=== PATIENT | male | born 1970 | race Caucasian/White ===

== ENCOUNTER 2017-07-18 14:41 | Emergency (ER) | payer BC ==
--- NOTE | 2017-07-19 09:15 | ER ---
ADMIT: 07/18/2017 RM/LOC: ER [facility] MR#: [id number] [facility] [id number] [address] [place] [address] Emergency Room Report SEX: M AGE: 46 : 1970 DATE: 07/18/2017 TIME: 1505 hours. CHIEF COMPLAINT: Racing heart. HISTORY OF PRESENT ILLNESS: This is a 46-year-old Citizen Of [place] male who had drank a several energy drinks today and he felt his heart racing. This time his EKG was negative. He does not really have any significant history otherwise. He is otherwise fairly healthy male. Does not smoke. Denies any other medical history. He was reassured after EKG and instructed to decrease his caffeine intake. CONDITION ON DISCHARGE: Good. Truong Acosta MD/ aries JOB #: [id number] CC: Truong Acosta MD, Attending Physician
== END 2017-07-18 15:24 | disposition home or self-care (01) ==
LOC: ER 14:41
DX: R00.2 Palpitations (principal); T43.615A Adverse effect of caffeine, initial encounter; F17.210 Nicotine dependence, cigarettes, uncomplicated